=== PATIENT | male | born 1965 | race Caucasian/White ===

== ENCOUNTER 2017-04-17 10:55 | Day surgery (SDC) | payer MEDICARE, BC ==
[2017-04-17] MEDS ORDERED: SOD CHLORIDE 0.9% 1,000 ML IV (14:00)
[2017-04-17] MEDS ORDERED: BUPIVACAINE 0.5% (SDV) 30 ML INJ (14:47)
[2017-04-17] MEDS ORDERED: BACITRACIN/POLYMYXIN 28.35 GM OINT TOP (14:48)
[2017-04-17] MEDS ORDERED: LIDOCAINE 1%/EPI 30 ML INJ (14:48)
[2017-04-17] MEDS ORDERED: BUPIVACAINE 0.25%/EPI (SDV) 30 ML INJ (14:49)
[2017-04-17] MEDS ORDERED: MIDAZOLAM 1 MG/ML 2 ML INJ (15:10)
[2017-04-17] MEDS ORDERED: FENTAnyl 50 MCG/ML VIAL (15:10)
[2017-04-17] MEDS ORDERED: PROPOFOL 20 ML (15:10)
[2017-04-17] MEDS ORDERED: morphine LIQ (10 MG/5 ML) CUP PO (15:30)
[2017-04-17] MEDS ORDERED: HYDROCODONE/APAP (5/325) TAB PO (15:30)
[2017-04-17] MEDS ORDERED: ONDANSETRON 4 MG INJ IV ×2 (15:30→17:00)
[2017-04-17] MEDS ORDERED: morphine 2 MG INJ IV (15:30)
[2017-04-17] MEDS: BUPIVACAINE 0.25%/EPI (SDV) 30 ML INJ INJ (15:39)
[2017-04-17] MEDS: LIDOCAINE 1%/EPI 30 ML INJ INJ (15:39)
[2017-04-17] MEDS: STERILE WATER 1L IRRIG BTL IRR (15:45)
[2017-04-17] MEDS ORDERED: FENTAnyl 50 MCG/ML VIAL IV (17:00)
[2017-04-17] MEDS ORDERED: LABETALOL HCL 20MG INJ IV (17:00)
[2017-04-17] MEDS ORDERED: hydrALAzine 20 MG INJ IV (17:00)
[2017-04-17] MEDS ORDERED: OXYCODONE/ACETAMINOPHEN (5/325) TAB PO ×2 (17:00)
[2017-04-17] MEDS ORDERED: METOCLOPRAMIDE 10 MG INJ IV (17:00)
== END 2017-04-17 17:42 | disposition home or self-care (01) ==
LOC: SDS 10:55
DX: C44.319 Basal cell carcinoma of skin of other parts of face (principal); I12.0 Hypertensive chronic kidney disease with stage 5 chronic kidney disease or end stage renal disease; N18.6 End stage renal disease; Z99.2 Dependence on renal dialysis
CPT/HCPCS: 11643; 88307; 88331